=== PATIENT | male | born 1945 | race Caucasian/White ===

== ENCOUNTER → 2016-11-14 | Outpatient (CLI) | payer MEDICARE ==
[~2016-11-14] MED LIST: ASPI-496 PO; AZIL1TAB2 PO; CHOL500050 PO; EZET1TAB5 PO; GABA300C PO; MULT-516 PO; OMEG100023 PO; SPIR25TA3 PO
[2016-11-14 10:15] LABS: ASPARTATE AMINO TRANSFERASE 19 U/L (15-37); BLOOD UREA NITROGEN 19 mg/dL (7-18)
[2016-11-14 10:45] LABS: HIV 1&2 ANTIBODY SCREEN Nonreactive (Nonreactive); HIV-1 p24 ANTIGEN Nonreactive (Nonreactive)
[2016-11-14 11:43] LABS: HEPATITIS C VIRUS ANTIBODY Nonreactive (Nonreactive)
== END | disposition home or self-care (01) ==
LOC: STAR 09:00
PROVIDERS: ATTEND Orthopaedic Surgery Orthopaedic Surgery of the Spine
DX: Z01.818 Encounter for other preprocedural examination (principal); M50.13 Cervical disc disorder with radiculopathy, cervicothoracic region; M79.601 Pain in right arm; R03.0 Elevated blood-pressure reading, without diagnosis of hypertension
CPT/HCPCS: 36415; 71020; 80053; 80074; 81003; 85025; 85610; 85651; 85730; 86703; 87086; 87899; 93005; G0435

== ENCOUNTER 2016-12-03 05:46 | Inpatient (IN) | payer MEDICARE ==
[~2016-12-03] VITALS: Ht 185.4 cm; Wt 99.4 kg
[2016-12-03] MEDS ORDERED: LACTATED RINGERS 1,000 ML IV SCH (06:20)
[2016-12-03 06:21] VITALS: BP 130/91
[2016-12-03] MEDS ORDERED: CELE200C PO (06:25)
[2016-12-03] MEDS ORDERED: BUPIVACAINE/PF-EPI 0.5% 1:200K ONE (06:36)
[2016-12-03] MEDS ORDERED: THROMBIN 5,000 UNIT VIAL TP ONE (06:37)
[2016-12-03] MEDS ORDERED: BACITRACIN 50,000 UNIT ONE (06:37)
[2016-12-03] MEDS ORDERED: LIDOCAINE/PF 1%, 30ML ONE (06:37)
[2016-12-03] MEDS ORDERED: BUPIVACAINE/PF 0.25% ONE (06:37)
[2016-12-03] MEDS ORDERED: EPINEPHRINE 1 MG/ML, 1ML ONE (06:38)
[2016-12-03] MEDS ORDERED: MIDAZOLAM 1 MG/ML, 2ML ONE (07:17)
[2016-12-03] MEDS ORDERED: FENTANYL PF 250 MCG/5ML ONE (07:17)
[2016-12-03] MEDS ORDERED: hydrALAzine 20 MG/ML, 1ML IV PRN (08:00)
[2016-12-03] MEDS ORDERED: FENTANYL PF 100 MCG/2ML IV PRN (08:00)
[2016-12-03] MEDS ORDERED: LABETALOL 5MG/ML, 20ML IV PRN ×2 (08:00→12:30)
[2016-12-03] MEDS ORDERED: OXYcodone 5 MG/5 ML ORAL.SOL UDC PO PRN (08:00)
[2016-12-03] MEDS ORDERED: METOCLOPRAMIDE 5 MG/ML, 2ML IV PRN (08:00)
[2016-12-03] MEDS ORDERED: ACETAMINOPHEN 325 MG TABLET PO PRN (08:00)
[2016-12-03] MEDS ORDERED: HYDROmorphone 1 MG/ML, 1ML IV PRN (08:00)
[2016-12-03] MEDS ORDERED: ONDANSETRON 2MG/ML, 2ML IVPush PRN (08:00)
[2016-12-03] MEDS ORDERED: ACETAMINOPHEN 650 MG/20.3 ML UDC ONE (10:28)
[2016-12-03] MEDS ORDERED: OXYcodone 5 MG/5 ML ORAL.SOL UDC ONE (10:28)
[2016-12-03] MEDS ORDERED: DIAZEPAM 5 MG/ML, 2ML IV ONE (11:00)
[2016-12-03] MEDS ORDERED: MAGNESIUM HYDROXIDE 8%, 30ML UDC PO PRN (12:30)
[2016-12-03] MEDS ORDERED: HYDROmorphone 1 MG/ML, 1ML IM PRN (12:30)
[2016-12-03] MEDS ORDERED: DIPHENHYDRAMINE 50 MG CAPSULE PO PRN (12:30)
[2016-12-03] MEDS ORDERED: PROMETHAZINE 25 MG/ML, 1ML IM PRN (12:30)
[2016-12-03] MEDS ORDERED: DIPHENHYDRAMINE 50 MG/ML, 1ML IVPush PRN (12:30)
[2016-12-03] MEDS ORDERED: HYDROmorphone 2MG TABLET PO PRN (12:30)
[2016-12-03] MEDS ORDERED: DIPHENHYDRAMINE 50 MG/ML, 1ML IM PRN (12:30)
[2016-12-03] MEDS: D5%-0.9% NACL+KCL 20MEQ 1,000 ML IV SCH ×2 (12:30→14:41)
[2016-12-03] MEDS ORDERED: BISACODYL 10 MG SUPP PR PRN (12:30)
[2016-12-03] MEDS ORDERED: DIAZEPAM 5 MG/ML, 2ML IV PRN (12:30)
[2016-12-03 13:09] VITALS: BP 148/91
[2016-12-03] MEDS: OXYcodone IR 5MG TABLET PO PRN ×3 (13:19→21:56)
[2016-12-03] MEDS: DEXAMETHASONE 4 MG/ML, 1ML IV SCH ×2 (14:40→21:57)
[2016-12-03] MEDS: CEFAZOLIN PMX 1GM/50ML 50 ML IVPB SCH (15:41)
[2016-12-03] MEDS ORDERED: ONDANSETRON 2MG/ML, 2ML ONE (16:25)
[2016-12-03] MEDS ORDERED: DEXAMETHASONE 4 MG/ML, 5ML ONE (16:25)
[2016-12-03] MEDS ORDERED: CEFAZOLIN 1,000 MG ONE (16:25)
[2016-12-03] MEDS ORDERED: SUCCINYLCHOLINE 20 MG/ML, 10ML ONE (16:25)
[2016-12-03] MEDS ORDERED: PROPOFOL 10 MG/ML, 50ML ONE (16:25)
[2016-12-03] MEDS ORDERED: ROCURONIUM 10 MG/ML ONE (16:25)
[2016-12-03 18:36] VITALS: BP 126/84
[2016-12-03] MEDS ORDERED: SIMVASTATIN 40 MG TABLET PO SCH (21:00)
[2016-12-03] MEDS ORDERED: EZETIMIBE 10 MG TABLET PO SCH (21:00)
[2016-12-04] MEDS: CEFAZOLIN PMX 1GM/50ML 50 ML IVPB SCH (00:12)
[2016-12-04] MEDS: GABAPENTIN 300 MG CAPSULE PO SCH ×2 (00:12→08:19)
[2016-12-04 00:14] VITALS: BP 114/74
[2016-12-04] MEDS: DIAZEPAM 5 MG TABLET PO PRN ×2 (00:20→08:27)
[2016-12-04] MEDS: OXYcodone IR 5MG TABLET PO PRN ×3 (02:14→11:48)
[2016-12-04 03:50] VITALS: BP 117/74
[2016-12-04] MEDS: DEXAMETHASONE 4 MG/ML, 1ML IV SCH (04:38)
[2016-12-04] MEDS: D5%-0.9% NACL+KCL 20MEQ 1,000 ML IV SCH ×2 (04:38→12:30)
[2016-12-04 07:44] VITALS: BP 117/80
[2016-12-04] MEDS ORDERED: SPIRONOLACTONE 25 MG TABLET PO SCH (09:00)
[2016-12-04] MEDS ORDERED: SENNA/DOCUSATE TABLET PO SCH (09:00)
[2016-12-04] MEDS ORDERED: CHLORTHALIDONE 25 MG TABLET PO SCH (09:00)
[2016-12-04] MEDS ORDERED: VALSARTAN 80 MG TABLET PO SCH (09:00)
[2016-12-04 13:07] VITALS: BP 125/82
== END 2016-12-04 14:00 | disposition home or self-care (01) | DRG 472 ==
LOC: ORIP 05:46 → 4NOR 11:58 → DCLOUNGE 12-04 13:25
PROVIDERS: ADMIT Orthopaedic Surgery Orthopaedic Surgery of the Spine; ATTEND Orthopaedic Surgery Orthopaedic Surgery of the Spine
PROC: 0RB50ZZ Excision of Cervicothoracic Vertebral Disc, Open Approach (ICD-10-PCS; 2016-12-03)
PROC: 4A11X4G Monitoring of Peripheral Nervous Electrical Activity, Intraoperative, External Approach (ICD-10-PCS; 2016-12-03)
PROC: [UNRECOGNIZED PROCEDURE] (principal; 2016-12-03 07:30)
DX: M48.02 Spinal stenosis, cervical region (principal); M50.03 Cervical disc disorder with myelopathy, cervicothoracic region; M47.22 Other spondylosis with radiculopathy, cervical region; M25.78 Osteophyte, vertebrae; M50.120 Mid-cervical disc disorder, unspecified level; I10 Essential (primary) hypertension; M50.10 Cervical disc disorder with radiculopathy, unspecified cervical region
CPT/HCPCS: 72040; 95938; 95941; C1713; J0171; J0690; J1100; J2250; J2405; J2704; J3010; J3360; J3490; C1762; J0330; J3480; J7120